=== PATIENT | female | born 1985 | race Caucasian/White ===

== ENCOUNTER 2019-05-24 16:10 | Emergency (ER) | payer OTHER ==
[~2019-05-24] VITALS: Ht 172.7 cm; Wt 55.3 kg
[2019-05-24 16:14] VITALS: BP 130/84
--- NOTE | 2019-05-24 16:14 | NUR ---
BRYANNA SIDHU TAKEN TO CHAIR C
--- NOTE | 2019-05-24 16:21 | NUR ---
39 y/o f biba for slip/fall at lettrsant in the restroom. Pt denies hitting head or LOC. Per pt she fell onto her left side. C/O bilateral wrist pain and bilateral knee pain. Pain level 6/10, aching. A&O x4. Respirations even and unlabored. Waiting for MD evaluation. Allergies: Reglan Med hx: Endometriosis and Degenerative Disk Disease
--- NOTE | 2019-05-24 16:27 | NUR ---
Fong evaluating pt at chair side
--- NOTE | 2019-05-24 17:04 | NUR ---
PT PLACED IN VELCRO LEFT WRIST SPLINT, PT CMS WNL BEFORE AND AFTER
[2019-05-24 17:18] VITALS: BP 130/84
--- NOTE | 2019-05-24 17:18 | NUR ---
Patient discharged with v/s stable. Written and verbal after care instructions given and explained. Patient alert, oriented and verbalized understanding of instructions. Ambulatory with steady gait. All questions addressed prior to discharge. ID band removed. Patient advised to follow up with PMD. Rx of Ibuprofen 600mg was given. Patient educated on indication of medication including possible reaction and side effects. Opportunity to ask questions provided and answered.
== END 2019-05-24 17:18 | disposition home or self-care (01) ==
LOC: EDBD 16:10 → MED 16:10
DX: S86.911A Strain of unspecified muscle(s) and tendon(s) at lower leg level, right leg, initial encounter (principal); S66.912A Strain of unspecified muscle, fascia and tendon at wrist and hand level, left hand, initial encounter; Z88.8 Allergy status to other drugs, medicaments and biological substances; W01.0XXA Fall on same level from slipping, tripping and stumbling without subsequent striking against object, initial encounter; Y92.511 Restaurant or cafe as the place of occurrence of the external cause; Y93.89 Activity, other specified; Y99.8 Other external cause status
CPT/HCPCS: 73110; 73560; 99283